=== PATIENT | female | born 1960 | race Caucasian/White ===

== ENCOUNTER → 2017-07-03 | Day surgery (SDC) | payer MEDICAID ==
[~2017-07-03] VITALS: Ht 160 cm; Wt 80.7 kg
[~2017-07-03] MED LIST: 0.9% Sodium Chloride 1,000 ML IV SCH; ATRV10T PO; GABA-500 PO; GABA-504 PO; LOSA100T29 PO; MAGN30TA3 PO; OMEP20CA11 PO; Sodium Chloride LOK Flush 10 mL Syringe IV PRN; VENL225T3 PO; fentaNYL-PF 50 mCg/mL 2 mL Inj IVPUSH PRN
[2017-07-03 12:56] VITALS: BP 148/110; PULSE 79; RESP 16; O2SAT 95
[2017-07-03 13:08] VITALS: BP 155/105
[2017-07-03 13:46] VITALS: BP 135/91; PULSE 87; RESP 14; O2SAT 92
[2017-07-03 14:09] VITALS: BP 147/88; PULSE 79; RESP 16; O2SAT 94
--- NOTE | 2017-07-04 05:57 | ENDO ---
[address] [address] ENDOSCOPY PROCEDURE PATIENT: MERYL SAM : 1960 MR#: [id number] ADMIT: 07/03/2017 JOB ID: [id number] DATE: 07/03/2017 PROCEDURE: Esophagogastroduodenoscopy with biopsies. INDICATIONS: A 56-year-old female with epigastric pain of uncertain etiology. EQUIPMENT: GIF-H180 SEDATION: 1. Versed 7 mg. 2. Fentanyl 125 mcg. COMPLICATIONS: None identified. PROCEDURE INFO: After the risks and benefits were explained, written and verbal informed consent was obtained. The patient was brought into the endoscopy suite and placed into the left lateral decubitus position. Sedation was achieved as above. The scope was introduced into the mouth through the bite block, and advanced to the second portion of the duodenum. The scope was slowly withdrawn and carefully examined the mucosa for any defects or lesions. Retroflexed views were accomplished in the stomach. The stomach was decompressed. The scope removed from the patient who tolerated the procedure well. FINDINGS: 1. Duodenum: Mucosally this appeared fairly unremarkable from the bulb through the second portion. There was a slight nodule versus submucosal fullness in the bulb and this area was targeted for a large biopsy and submitted for histopathologic analysis. 2. Stomach: No ulcers. No outlet obstruction. No mass lesions. Moderate diffuse gastropathy was seen throughout and a biopsy was taken at random for exclusion of Helicobacter or other pathology. Otherwise, retroflexed views of the LES were unremarkable. 3. Esophagus: The squamocolumnar junction generally correlated with the top of the gastric folds. The GEJ was at about 37 cm from the incisors. with some slight irregularity of the GE junction. Possibly a couple of tongues of Marie's and therefore a targeted biopsy from GEJ was acquired. No other significant esophageal pathology appreciated. A subtle sliding hiatal hernia was definitely noted. ENDOSCOPIC DIAGNOSES: 1. Irregular gastroesophageal junction. 2. Hiatal hernia. 3. Gastropathy. 4. Duodenal bulb nodularity. RECOMMENDATIONS: 1. Await histopathology. 2. Continue PPI. 3. Follow up on clinical results in the next couple of weeks with
--- NOTE | 2017-07-06 16:17 | PATH ---
SURGICAL PATHOLOGY Attending Physician:Titus Hay CASE STATUS: Signed Out PATIENT NAME: MERYL SAM PID: [id number] : 1960 DATE COLLECTED:07/03/2017 00:00 SPECIMEN: 1: Duodenum, Biopsy 2: Gastric, Biopsy 3: Esophagus, Biopsy CLINICAL HISTORY: 1). DUODENAL SUBMUCOSAL NODULE BIOPSY 2). GASTRIC BIOPSY - RULE OUT H PYLORI 3). GASTROESOPHAGEAL JUNCTION BIOPSY FINAL DIAGNOSIS: 1. Duodenum, Submucosal Nodule, Biopsy: Duodenal mucosa with prominent Feliz's glands. Negative for active inflammation, intraepithelial lymphocytosis or villous blunting. Negative for Giardia organisms, dysplasia and malignancy. 2. Stomach, Biopsy: Body-type mucosa with no diagnostic abnormality. Negative for Helicobacter organisms. Negative for intestinal metaplasia. Negative for dysplasia and malignancy. 3. Gastroesophageal Junction, Biopsy: Oxyntic-type mucosa with mild chronic inflammation. Negative for intestinal metaplasia. Negative for dysplasia and malignancy. ICD10: R10.9 GROSS DESCRIPTION: The specimen is received in three formalin filled containers labeled with the patient's name. 1). The specimen is labeled "duod" and consists of a 0.2 x 0.2 x 0.2 CM portion of tissue which is entirely submitted in cassette 1A. 2). The specimen is labeled "gastric" and consists of a 0.3 x 0.2 x 0.2 CM portion of tissue which is entirely submitted in cassette 2A. 3). The specimen is labeled " GEJ " and consists of a 0.3 x 0.3 x 0.2 CM portion of tissue which is entirely submitted in cassette 3A. 07/04/2017DC ICD-9 CODES: CPT CODES: 1: 81668 2: 23574 3: 34263 Electronically Signed Out Adelita Stanley MD [facility] [address], [place] [address] Technical component performed at [facility], [facility] [address], [place], [address]
== END | disposition home or self-care (01) ==
LOC: END 01:18
PROVIDERS: ATTEND Internal Medicine Gastroenterology
DX: K44.9 Diaphragmatic hernia without obstruction or gangrene (principal); K31.9 Disease of stomach and duodenum, unspecified; R10.13 Epigastric pain; I10 Essential (primary) hypertension; E78.5 Hyperlipidemia, unspecified; F17.210 Nicotine dependence, cigarettes, uncomplicated
CPT/HCPCS: 43239; 99152; J2250; J3010; J7030